=== PATIENT | female | born 1980 | race Caucasian/White ===

== ENCOUNTER 2017-01-10 09:02 | Emergency (ER) | payer MEDICAID ==
[~2017-01-10] VITALS: Ht 162.6 cm; Wt 92.4 kg
[~2017-01-10 09:02] MED LIST: IBUP-1542 PO; IBUP800T25 PO
[2017-01-10 09:14] VITALS: Ht 162.6 cm; Wt 92.4 kg
[2017-01-10] MEDS ORDERED: ALBUTEROL 0.083% (NEB) 2.5 MG/3 ML AMP HHN STA (09:49)
[2017-01-10] MEDS ORDERED: IPRATROPIUM (NEB) 0.5 MG/2.5 ML AMP HHN ONE (10:00)
[2017-01-10] MEDS ORDERED: predniSONE 20 MG TAB PO ONE (10:00)
[2017-01-10] MEDS ORDERED: DOXY100T20 PO (10:25)
[2017-01-10] MEDS ORDERED: ALBU8.5H3 INH (10:25)
[2017-01-10] MEDS ORDERED: PRED20TA PO (10:25)
[2017-01-10] MEDS ORDERED: BENZ100C70 PO (10:25)
--- NOTE | 2017-01-10 11:14 | ERD ---
ER Documentation Chief Complaint Chief Complaint cough chest congestion HPI 78-year-old female complaining of cough 2 weeks. Patient denies fever. She has been taking all the [id number] medications with no alleviation of symptoms. Described as a productive cough but feels she is unable to expel sputum. No history of asthma or pneumonia. Denies medical problems. NKDA. Surgical history: Denies. ROS All systems reviewed and are negative except as per history of present illness. Medications Home Meds Active Scripts Prednisone* (Prednisone*) 20 Mg Tab, 40 MG PO DAILY for 4 Days, TAB Prov:AHMET ERNST PA-C 01/10/17 Albuterol Sulfate* (Proair HFA*) 8.5 Gm Hfa.aer.ad, 2 PUFF INH Q4, #1 INHALER Prov:AHMET ERNST PA-C 01/10/17 Benzonatate* (Tessalon Perle*) 100 Mg Capsule, 100 MG PO Q8H Y for COUGH, #30 CAP Prov:AHMET ERNST PA-C 01/10/17 Doxycycline Hyclate* (Doxycycline Hyclate*) 100 Mg Tablet.dr, 100 MG PO BID for 10 Days, TAB Prov:AHMET ERNST PA-C 01/10/17 Ibuprofen* (Motrin*) 600 Mg Tab, 600 MG PO Q6H Y for PAIN AND OR ELEVATED TEMP, #30 TAB Prov:DAWNA CERNA MD 05/27/15 Ibuprofen* (Motrin*) 800 Mg Tab, 800 MG PO Q6H Y for PAIN AND OR ELEVATED TEMP, #30 TAB Prov:MARY ALONSO MD 10/29/14 Allergies Allergies: Coded Allergies: No Known Allergy (Unverified , 01/10/17) PMhx/Soc Medical and Surgical Hx: pt denies Medical Hx, pt denies Surgical Hx History of Surgery: No Anesthesia Reaction: No Hx Neurological Disorder: No Hx Respiratory Disorders: No Hx Cardiac Disorders: No Hx Psychiatric Problems: No Hx Miscellaneous Medical Probl: No Hx Alcohol Use: No Hx Substance Use: No Hx Tobacco Use: No Smoking Status: Never smoker Physical Exam Vitals Vital Signs Date Time Temp Pulse Resp B/P Pulse Ox O2 Delivery O2 Flow Rate FiO2 01/10/17 10:09 89 18 98 21 01/10/17 09:14 98.0 89 18 132/65 98 Physical Exam GENERAL: The patient is well-appearing, well-nourished, in no acute distress HEENT: Atraumatic. Conjunctivae are pink. Pupils equal, round, and reactive to light. There is no scleral icterus. Tympanic membranes clear bilaterally. Oropharynx clear. No nystagmus or photophobia. NECK: C-spine is soft and supple. There is no meningismus. There is no cervical lymphadenopathy. No JVD. No bruits. No goiter. CHEST: Rhonchi heard on auscultation to the right lung space. No wheezing. Breath sounds heard throughout HEART: Regular rate and rhythm. No murmurs, clicks, rubs or gallops. No S3 or S4. Results 24 hrs Current Medications Medications (Trade) Dose Ordered Sig/Yovanny Route PRN Reason Start Time Stop Time Status Last Admin Dose Admin Albuterol (Proventil 0.083% (Neb)) 2.5 mg ONCE STAT N 01/10/17 09:49 01/10/17 09:59 DC 01/10/17 10:08 Ipratropium [place] (Atrovent 0.02% (Neb)) 0.5 mg ONCE ONCE N 01/10/17 10:00 01/10/17 10:01 DC 01/10/17 10:09 Prednisone (Prednisone) 60 mg ONCE ONCE PO 01/10/17 10:00 01/10/17 10:01 DC 01/10/17 10:03 Procedures/MDM ER COURSE: Albuterol and Atrovent breathing treatment given in the ED. Oral prednisone given in the ED. MDM: 36-year-old female complaining of cough congestion. Patient has concerning findings on auscultation I will treat with antibiotics. Vital signs are stable. I have low suspicion for respiratory distress or hypoxia. I have low suspicion for meningitis or sepsis. Patient will be discharged with oral antibiotics and recommended to follow-up with primary care within 1-2 days for close evaluation. All questions answered at discharge Departure Diagnosis: Primary Impression: Cough Condition: Stable Patient Instructions: Cough, Chronic, Uncertain Cause, (Adult) Referrals: COMMUNITY CLINICS YOU HAVE RECEIVED A MEDICAL SCREENING EXAM AND THE RESULTS INDICATE THAT YOU DO NOT HAVE A CONDITION THAT REQUIRES URGENT TREATMENT IN THE EMERGENCY DEPARTMENT. FURTHER EVALUATION AND TREATMENT OF YOUR CONDITION CAN WAIT UNTIL YOU ARE SEEN IN YOUR DOCTORS OFFICE WITHIN THE NEXT 1-2 DAYS. IT IS YOUR RESPONSIBILITY TO MAKE AN APPOINTMENT FOR FOLOW-UP CARE. IF YOU HAVE A PRIMARY DOCTOR --you should call your primary doctor and schedule an appointment IF YOU DO NOT HAVE A PRIMARY DOCTOR YOU CAN CALL OUR PHYSICIAN REFERRAL HOTLINE AT IF YOU CAN NOT AFFORD TO SEE A PHYSICIAN YOU CAN CHOSE FROM THE FOLLOWING [facility] [address] [facility] [address] [facility]. [facility] [address] [facility] [address] [facility] [address] [facility] [facility]. [address] Additional Instructions: FOLLOW UP WITH YOUR PRIMARY CARE PHYSICIAN TOMORROW.Return to this facility if you are not improving as expected. AHMET ERNST PA-C Jan 10, 2017 11:14
== END 2017-01-10 10:49 | disposition home or self-care (01) ==
LOC: FTE 09:02
DX: R05 Cough (principal)
CPT/HCPCS: 94664; J7512; Z7502; Z7610

== ENCOUNTER 2017-02-22 19:15 | Emergency (ER) | END 2017-02-22 19:57 | disposition left against medical advice (07) ==